=== PATIENT | male | born 1995 | race Caucasian/White ===

== ENCOUNTER 2022-02-28 05:29 | Emergency (ER) | payer OTHER ==
[~2022-02-28] VITALS: Ht 167.6 cm; Wt 93.0 kg
[2022-02-28 05:34] VITALS: BP 112/65
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
[2022-02-28 06:03] VITALS: BP 114/72
--- NOTE | 2022-02-28 06:05 | NUR ---
PATIENT [facility] [employer]. PATIENT EXAMINED BY DR. CORONADO. PATIENT MEDICALLY CLEARED AND RELEASED IN CUSTODY IN STABLE CONDITION. ORIGINAL PRE-BOOK FORM GIVEN TO OFFICER [id number].
== END 2022-02-28 05:50 ==
LOC: MED 05:29
DX: J11.1 Influenza due to unidentified influenza virus with other respiratory manifestations (principal); Z02.89 Encounter for other administrative examinations
CPT/HCPCS: 99283